=== PATIENT | female | born 1960 | race Caucasian/White ===

== ENCOUNTER 2018-08-18 07:16 | Day surgery (SDC) | payer OTHER ==
[~2018-08-18 07:16] MED LIST: GLYCOPYRROLATE 0.4 MG INJ; NEOSTIGMINE 3 MG/3 ML SYRINGE
[2018-08-18] MEDS ORDERED: morphine SULFATE/PF (10 MG/10 ML) INJ (09:51)
[2018-08-18] MEDS ORDERED: DIPHENHYDRAMINE 50 MG INJ IV (10:00)
[2018-08-18] MEDS ORDERED: hydrALAzine 20 MG INJ IV (10:00)
[2018-08-18] MEDS ORDERED: FENTAnyl 50 MCG/ML VIAL IV ×3 (10:00)
[2018-08-18] MEDS ORDERED: LABETALOL HCL 20MG INJ IV (10:00)
[2018-08-18] MEDS ORDERED: METOCLOPRAMIDE 10 MG INJ IV (10:00)
[2018-08-18] MEDS ORDERED: ALBUTEROL 0.083% (NEB) 2.5 MG/3 ML AMP HHN (10:00)
[2018-08-18] MEDS ORDERED: HYDROmorphONE 1 MG/5 ML IV SYRINGE IV (10:00)
[2018-08-18] MEDS ORDERED: FENTAnyl 50 MCG/ML VIAL (10:14)
[2018-08-18] MEDS ORDERED: LABETALOL HCL 20MG INJ (10:24)
[2018-08-18] MEDS ORDERED: PROPOFOL 20 ML (10:29)
[2018-08-18] MEDS ORDERED: LIDOCAINE 100 MG SYRINGE (10:29)
[2018-08-18] MEDS ORDERED: CLINDAMYCIN 900 MG/D5W (PMX) 50 ML IVPB (10:29)
[2018-08-18] MEDS ORDERED: SUCCINYLCHOLINE CHLORIDE 100 MG/5 ML SYG IV (10:29)
[2018-08-18] MEDS: ROCURONIUM 50 MG INJ (10:51)
[2018-08-18] MEDS: LIDOCAINE 1% (MPF) 30 ML INJ (10:53)
[2018-08-18] MEDS: NEOMYC/POLYMYX/BACIT 30 GM OINT (11:34)
[2018-08-18] MEDS: HEPARIN 1000 UNITS/ML 10 ML INJ (11:36)
[2018-08-18] MEDS: ROPIVACAINE 0.5 % 30 ML VIAL (11:37)
[2018-08-18] MEDS ORDERED: SUGAMMADEX SODIUM 200 MG/2 ML VIAL IV (11:57)
[2018-08-18] MEDS: HYDROmorphONE 1 MG/5 ML IV SYRINGE IV ×2 (12:09→12:32)
[2018-08-18] MEDS: MEPERIDINE 25 MG INJ IV (12:11)
[2018-08-18] MEDS: ONDANSETRON 4 MG INJ IV (12:12)
[2018-08-18] MEDS: OXYCODONE/ACETAMINOPHEN (5/325) TAB PO (13:27)
== END 2018-08-18 14:47 | disposition home or self-care (01) ==
LOC: SDS 07:16
DX: S83.241D Other tear of medial meniscus, current injury, right knee, subsequent encounter (principal); X58.XXXD Exposure to other specified factors, subsequent encounter; M94.261 Chondromalacia, right knee; I10 Essential (primary) hypertension; E78.5 Hyperlipidemia, unspecified; E11.9 Type 2 diabetes mellitus without complications; E66.01 Morbid (severe) obesity due to excess calories; Z68.43 Body mass index [BMI] 50.0-59.9, adult
CPT/HCPCS: 29855; 73562; 82306; 82962